=== PATIENT | female | born 1940 | race Caucasian/White ===

== ENCOUNTER 2023-09-27 09:55 | Outpatient (CLI) | payer MEDICARE, MEDICAID ==
[2023-09-27 10:32] LABS: EOSINOPHILS # (AUTO) 0.1 X10'3 (0-0.9); EOSINOPHILS % (AUTO) 2.6 % (0-6); HEMATOCRIT 34.2 % (35.0-45.0); HEMOGLOBIN 11.4 g/dl (12.0-16.0); RED CELL DISTRIBUTION WIDTH 13.9 % (11.5-14.5)
[2023-09-27 10:33] LABS: BASOPHILS % (AUTO) 0.9 % (0-1); LYMPHOCYTES # (AUTO) 1.3 X10'3 (1.1-4.8); LYMPHOCYTES % (AUTO) 24.7 % (21-51); MEAN CORPUSCULAR HEMOGLOBIN 32.8 PG (27.0-31.0); MEAN CORPUSCULAR HGB CONC 33.4 g/dL (33.0-36.5); MEAN CORPUSCULAR VOLUME 98.1 FL (78-98); MEAN PLATELET VOLUME 8.1 FL (7.4-10.4); MONOCYTES # (AUTO) 0.4 X10'3 (0-0.9); MONOCYTES % (AUTO) 8.5 % (2-12); NEUTROPHILS # (AUTO) 3.3 X10'3 (1.8-7.7); NEUTROPHILS % (AUTO) 63.3 % (42-75); PLATELET COUNT 213 X10'3 (140-440); RED BLOOD COUNT 3.48 X10'6 (4.20-5.60); WHITE BLOOD COUNT 5.2 X10'3 (4.5-11.0)
[2023-09-27 10:38] LABS: APTT 29 SECONDS (22-32); PROTHROMBIN TIME 10.5 SECONDS (9.0-12.0)
[2023-09-27 10:45] LABS: ALANINE AMINOTRANSFERASE 9 U/L (12-78); ALBUMIN 3.1 G/DL (3.4-5.0); ALBUMIN/GLOBULIN RATIO 0.8 (1.1-1.5); ALKALINE PHOSPHATASE 117 IU/L (46-116); ANION GAP 5 (8-16); ASPARTATE AMINO TRANSFERASE 28 U/L (10-37); BILIRUBIN,TOTAL 0.4 MG/DL (0.1-1.0); BLOOD UREA NITROGEN 22 MG/DL (7-18); BUN/CREATININE RATIO 16.2 (10.0-20.0); CHLORIDE 101 MMOL/L (99-107); CREATININE 1.36 MG/DL (0.40-0.90); GLUCOSE 92 MG/DL (70-104); POTASSIUM 4.4 MMOL/L (3.5-5.1); PRO BRAIN NATRIURETIC PEPTIDE 1992 PG/ML (0-450); SODIUM 136 MMOL/L (135-145); TOTAL CARBON DIOXIDE 30.1 MMOL/L (24-32); TOTAL PROTEIN 6.8 G/DL (6.4-8.2); eGFR 37 ML/MIN
[2023-09-27] MEDS ORDERED: IODIXANOL 320 MG/ML INFUS..BTL 100ML IV ONE (11:01)
== END 2023-09-27 23:59 | disposition home or self-care (01) ==
LOC: RAD 09:55
PROVIDERS: ATTEND Internal Medicine Cardiovascular Disease
DX: Z01.818 Encounter for other preprocedural examination (principal); K44.9 Diaphragmatic hernia without obstruction or gangrene; I25.10 Atherosclerotic heart disease of native coronary artery without angina pectoris; I35.0 Nonrheumatic aortic (valve) stenosis; R06.02 Shortness of breath; I65.23 Occlusion and stenosis of bilateral carotid arteries; N83.201 Unspecified ovarian cyst, right side; M47.814 Spondylosis without myelopathy or radiculopathy, thoracic region; M16.11 Unilateral primary osteoarthritis, right hip; Z90.49 Acquired absence of other specified parts of digestive tract
CPT/HCPCS: 36415; 71046; 71275; 74174; 75574; 80053; 83880; 85025; 85610; 85730; 93880; 94010; 94727; 94729; J3490; Q9967

== ENCOUNTER 2024-06-20 11:09 | Outpatient (CLI) | payer MEDICARE, MEDICAID ==
[~2024-06-20] VITALS: Ht 177.8 cm; Wt 84.2 kg
[2024-06-20 11:41] VITALS: BP 110/56; PULSE 120; RESP 14; TEMP 96.5; O2SAT 95
[2024-06-20 11:57] VITALS: BP 110/56; PULSE 120; RESP 14; TEMP 96.5; O2SAT 95
[2024-06-20 13:24] LABS: BASOPHILS # (AUTO) 0.1 X10'3 (0-0.2); EOSINOPHILS # (AUTO) 0.1 X10'3 (0-0.9); EOSINOPHILS % (AUTO) 1.9 % (0-6); HEMATOCRIT 32.6 % (35.0-45.0); HEMOGLOBIN 10.9 g/dl (12.0-16.0); LYMPHOCYTES # (AUTO) 0.7 X10'3 (1.1-4.8); LYMPHOCYTES % (AUTO) 12.5 % (21-51); MEAN CORPUSCULAR HEMOGLOBIN 31.9 PG (27.0-31.0); MEAN CORPUSCULAR HGB CONC 33.5 g/dL (33.0-36.5); MEAN PLATELET VOLUME 8.1 FL (7.4-10.4); MONOCYTES # (AUTO) 0.3 X10'3 (0-0.9); MONOCYTES % (AUTO) 6.1 % (2-12); NEUTROPHILS # (AUTO) 4.2 X10'3 (1.8-7.7); NEUTROPHILS % (AUTO) 78.5 % (42-75); PLATELET COUNT 200 X10'3 (140-440); RED BLOOD COUNT 3.43 X10'6 (4.20-5.60); WHITE BLOOD COUNT 5.3 X10'3 (4.5-11.0)
[2024-06-20 13:47] LABS: APTT 29 SECONDS (22-32); PROTHROMBIN TIME 10.7 SECONDS (9.0-12.0)
[2024-06-20 13:57] LABS: ALANINE AMINOTRANSFERASE 19 U/L (12-78); ALBUMIN 3.3 G/DL (3.4-5.0); ALBUMIN/GLOBULIN RATIO 0.9 (1.1-1.5); ALKALINE PHOSPHATASE 108 IU/L (46-116); ANION GAP 11 (8-16); ASPARTATE AMINO TRANSFERASE 20 U/L (10-37); BILIRUBIN,TOTAL 0.4 MG/DL (0.1-1.0); BLOOD UREA NITROGEN 33 MG/DL (7-18); BUN/CREATININE RATIO 25.4 (10.0-20.0); CALCIUM 9.3 MG/DL (8.5-10.1); CHLORIDE 99 MMOL/L (99-107); GLUCOSE 91 MG/DL (70-104); POTASSIUM 4.1 MMOL/L (3.5-5.1); SODIUM 138 MMOL/L (135-145); TOTAL CARBON DIOXIDE 28.4 MMOL/L (24-32); TOTAL PROTEIN 6.9 G/DL (6.4-8.2); eCRCL 36 ML/MIN; eGFR 39 ML/MIN
[2024-06-20 13:58] LABS: PRO BRAIN NATRIURETIC PEPTIDE 2739 PG/ML (0-450); THYROID STIMULATING HORMONE 3.12 ulU/ml (0.34-4.50)
== END 2024-06-20 23:59 | disposition home or self-care (01) ==
LOC: TAVR 11:09
PROVIDERS: ATTEND Internal Medicine Cardiovascular Disease
DX: I35.0 Nonrheumatic aortic (valve) stenosis (principal); I49.5 Sick sinus syndrome; R06.02 Shortness of breath; I65.29 Occlusion and stenosis of unspecified carotid artery
CPT/HCPCS: 36415; 80053; 83880; 84443; 85025; 85610; 85730; 93005